=== PATIENT | female | born 1975 | race Caucasian/White ===

== ENCOUNTER → 2024-05-30 13:09 | Outpatient (BNVA) | payer MEDICAID, SELFPAY | PROVIDERS: Family Provider Nurse Practitioner; PCP Nurse Practitioner Family; Visit Provider Podiatrist Foot & Ankle Surgery | DX: M25.571 Pain in right ankle and joints of right foot (principal); M76.71 Peroneal tendinitis, right leg | CPT/HCPCS: 73610 ==